=== PATIENT | male | born 2000 | race Caucasian/White ===

== ENCOUNTER 2024-10-05 06:04 | Day surgery (SDC) | payer OTHER, SELFPAY ==
[2024-10-05] VITALS (20 sets, daily range): BP systolic 118–131; BP diastolic 60–85; PULSE 63–86; RESP 16; TEMP 37.1–37.8; O2SAT 98–100; BMI 25.0
--- NOTE | 2024-10-05 07:03 | W.PM.H&PU ---
History & Physical Update History & Physical Update H&P Reviewed and patient assessed: No changes noted
[2024-10-05] MEDS: BUPIVACAINE 0.5% 30 ML 4 ML INJECTION (07:05)
[2024-10-05] MEDS: LIDOCAINE 1% MDV INJECTION (07:05)
[2024-10-05] MEDS: ETHYL CHLORIDE 1 APPLICATION 1 APPLIC TOPICAL (07:05)
--- NOTE | 2024-10-05 08:32 | PM.ORPRC ---
Procedure Note Date of procedure: 10/05/24 Procedure: PREOPERATIVE DIAGNOSIS: 1. Displaced, comminuted, extra-articular, left index finger middle phalanx fracture POSTOPERATIVE DIAGNOSIS: 1. Displaced, comminuted, extra-articular, left index finger middle phalanx fracture PROCEDURE: 1. Left index finger middle phalanx closed reduction percutaneous pinning SURGEON: Tomy Souza MD. [employer]THOP[employer] SALESPERSON: Johanna Ariza P.A.-C. - Distance Learning Technician was critical for this case to aid in patient positioning, limb manipulation/positioning, and application of dressings and splint ANESTHESIA: Local anesthetic IMPLANTS: 0.045 K-wires x2 TOURNIQUET: Not utilized ESTIMATED BLOOD LOSS: 5 mL COMPLICATIONS: None evident INDICATIONS: The patient is a pleasant 23-year-old male sustained a crush injury to his left index finger which resulted in a displaced, left index finger middle phalanx fracture. Initially treated with closed reduction, however, fracture subsequently displaced and was unstable. Recommendation subsequent made for surgical intervention consisting of closed reduction percutaneous pinning to provide stability and allow for healing in a more anatomic position. Prior to surgery risks and benefits procedure discussed with patient, all questions were answered, and informed consent was obtained. FINDINGS: Comminuted, displaced, extra-articular, left index finger middle phalanx fracture. Healing lacerations on the volar aspect of the index finger at the level of the DIP flexion crease and middle phalanx. After closed reduction and percutaneous pinning, fracture was in near anatomic position and was stable under fluoroscopy. DESCRIPTION OF PROCEDURE: Patient was seen preoperatively and operative site was marked. A digital nerve block was then performed using 1% plain lidocaine and 0.5% plain bupivacaine. Patient was then brought to the operative room and placed in supine position on the OR table. The operative extremity was prepped and draped in usual sterile fashion. Surgical time-out was performed confirming patient identity, surgical site, and surgical procedure. Closed reduction was performed using mini C-arm for fluoroscopic guidance. A 0.045 K-wire was placed into the distal ulnar aspect of the middle phalanx and used a joystick to help manipulate fracture and hold reduction. A 2nd 0.045 K-wire was then placed into the proximal radial aspect of the middle phalanx and advanced in antegrade fashion across the fracture site into the cortex of the distal fragment. The distal wire was then advanced in retrograde fashion across the fracture site into the cortex of the proximal fragment. Fluoroscopic images obtained in multiple planes showed satisfactory reduction of the fracture in near anatomic position. Live fluoroscopic images confirmed that fracture was stable with movement of the PIP and the IP joints. Pins were then bent and cut and Jergen's balls were placed. Sterile dressings were then applied followed by an Alumafoam splint immobilizing the PIP in the IP joints. Patient was then transferred to the recovery room stable condition PLAN: 1. Keep splint clean and dry. 2. Acetaminophen, ibuprofen, ice, and elevation for pain and swelling. 3. Begin early range of motion of the index finger MCP joint. 4. Follow-up in Orthopedic Clinic in 5-7 days. 5. Initiate Occupational therapy in 1 week for edema control and to begin range of motion of the PIP and the IP joints.
== END 2024-10-05 09:00 | disposition home or self-care (01) ==
LOC: OR 06:04
PROVIDERS: PCP Family Medicine; Visit Provider Orthopaedic Surgery
PROC: (CPT 26727; principal; 2024-10-05 07:15)
DX: S62.621A Displaced fracture of middle phalanx of left index finger, initial encounter for closed fracture (principal)
CPT/HCPCS: 26727; 73140; 76000; J2003; J0665